=== PATIENT | male | born 1955 | race Caucasian/White ===

== ENCOUNTER 2018-05-14 13:59 | Inpatient (IN) ==
[2018-05-14] MEDS ORDERED: Naloxone Inj 0.4 MG/ML Vial ONE (14:09)
[2018-05-14] MEDS ORDERED: Naloxone Inj 2 MG/2 ML Vial IV.PUSH ONE (14:13)
[2018-05-14] MEDS ORDERED: Sod Chloride 0.9% Inj 1,000 ML IV.CONT SCH (14:15)
--- NOTE | 2018-05-14 15:00 | XR ---
EXAM DATE: 05/14/2018 2:52 PM EDT AGE/SEX: 89 years / Male INDICATIONS: Short of breath. Post code. CLINICAL DATA: This is the patient's initial encounter. Patient reports that signs and symptoms have been present for 1 day and indicates a pain score of Nonresponsive. MEDICAL/SURGICAL HISTORY: Cardiovascular disease. Pacemaker. COMPARISON: No prior exams available for comparison. FINDINGS: A single AP view of the chest demonstrates the lungs to be symmetrically aerated without evidence of mass, infiltrate or effusion. Dual lead pacemaker is identified. Heart size is normal. Large amount o f air identified within the stomach. Osseous structures are intact. CONCLUSION: No evidence of parenchymal lung abnormality. Air within the stomach may be secondary to resuscitation . Electronically signed by: Nafisa Vences MD 05/14/2018 2:58 PM EDT
[2018-05-14] MEDS ORDERED: Propofol 1000 mg/100 ml Inj 1,000 MG/100 ML BOTTLE IV.CONT PRN (15:01)
[2018-05-14] MEDS ORDERED: Etomidate Inj 40 MG/20 ML Vial IV.PUSH ONE (15:01)
[2018-05-14] MEDS ORDERED: Succinylcholine Inj 100 MG/5 ML Syringe IV.PUSH ONE (15:01)
[2018-05-14] MEDS ORDERED: Succinylcholine Inj 200 MG/10 ML Vial ONE (15:07)
[2018-05-14] MEDS ORDERED: fentaNYL 10 mcg/mL Premix Drip 2,500 MCG/250 ML BAG IV.SIG PRN (15:24)
--- NOTE | 2018-05-14 15:43 | ED ---
HPI General Chief Complaint: Overdose Stated Complaint: Medical Time Seen by Provider: 05/14/18 14:12 Source: patient and EMS Mode of arrival: EMS Limitations: altered mental status History of Present Illness HPI Narrative: 58-year-old male was brought by EMS for altered mental status. Patient was found unresponsive in a parking lot local [employer] store. Chest compression started by bystander. EMS was called. Patient was given Narcan with partial reversal of the altered mental status. Patient with given nonrebreathing mask. Patient was transported to the ED for evaluation. Patient was able to tell us he was snorting Xanax. Patient however with severe altered mental status and unable to provide much more information. Patient has repeating episodes of vomiting at the scene and upon arrival. Unable to obtain past history, medication, allergy. MD complaint: accidental overdose Onset (ago): minute(s) Intent: unwilling to say How Overdose Was Discovered: other Context: Accidental Overdose: uncertain what happened Treatments Prior to Arrival: oxygen, narcan and IV fluids Related Data Allergies Allergy/AdvReac Type Severity Reaction Status Date / Time No Allergy Information Allergy Verified 05/14/18 14:13 Available Review of Systems ROS: all other systems reviewed are negative [facility] Medical History Medical History Medical history unknown (Acute) Surgical history unknown (Acute) Social History Social History Substance History: Unable to Obtain Smoking Status: Unknown if ever smoked How Often Do You Have a Drink Containing Alcohol: Unable to Obtain Recent Travel in [facility] within the Last 8 Weeks: No Recent Out of Country Travel within the Last 8 Weeks: No Immunization History Tetanus Immunization: Unable to Assess Exam Narrative Exam Narrative: GENERAL: Well-nourished, well-developed patient. SKIN: Focused skin assessment warm/dry. HEAD: Normocephalic. EYES: No scleral icterus. No injection or drainage. Pupils are pinpoint. NECK: Supple, trachea midline. No JVD or lymphadenopathy. CARDIOVASCULAR: Regular rate and rhythm without murmurs, gallops, or rubs. RESPIRATORY: Breath sounds equal bilaterally. No accessory muscle use. GASTROINTESTINAL: Abdomen soft, non-tender, nondistended. MUSCULOSKELETAL: No cyanosis, or edema. BACK: Nontender without obvious deformity. No CVA tenderness. Neurologic exam: Patient with severe lethargy. Patient answer questions for short period of time and became nonresponsive again. Patient moves all extremity well. No obvious focal neurological deficit. Procedures Intubation Time Out Performed: Yes Sedative: etomidate Mg Given: 20 Paralytic: succinylcholine Mg Given: 100 Laryngoscope: fiber optic video scope Assist Device Used: fiber optic device ET Tube Size: 7.5 ET Tube Uncuffed: Yes Tube Secured Depth (cm): 23 Tube Secured Location: lips Tube Placement Confirmation: visualized tube passing through cords, equal breath sounds bilaterally, no breath sounds over epigastrium and confirmation by capnometry Patient Tolerated Procedure: well Intubation Complications: none Course Initial Documented Vital Signs Temperature 97.8 F 05/14/18 14:12 Pulse Rate 61 05/14/18 14:12 Respiratory Rate 21 05/14/18 14:12 Blood Pressure 155/85 H 05/14/18 14:12 Pulse Oximetry 91 L 05/14/18 14:12 Last Documented Vital Signs Temperature 97.8 F 05/14/18 14:12 Pulse Rate 79 05/14/18 15:18 Respiratory Rate 21 05/14/18 15:18 Blood Pressure 118/81 05/14/18 15:18 Pulse Oximetry 99 05/14/18 15:18 Critical Care Time Critical Care Time: Yes Total Critical Care Time: 60 Attestation: Aggregate critical care time was 60 minutes. Time to perform other separately billable procedures was not included in the critical care time. My time did not include minutes spent treating any other patients simultaneously or on activities that did not directly contribute to the patient's treatment. The services I provided to this patient were to treat and/or prevent clinically significant deterioration that could result in: I provided critical care services requiring my management, as noted below: Chart data review, documentation time, medication orders and management, vital sign assessments/reviewing monitor data, ordering and reviewing lab tests, ordering and interpreting/reviewing x-rays and diagnostic studies, care of the patient and discussion of the patient with the admitting physicians. Medical Decision Making MDM Narrative Medical decision making narrative: 58-year-old male was found unresponsive in a parking lot at [facility]. Patient was brought in by EMS. Patient was given Narcan at the scene and again in the ED with partial relief of the lethargy. Patient admitted to snorting Xanax. Normal saline solution 1 25 cc an hour. Patient was given Narcan 0.8 mg IV after EMS gave patient 1.2 mg IV Narcan. Patient still severe lethargy with recurrent vomiting. Patient was intubated for airway protection and respiratory failure. Medical Screen Exam Complete: Yes Emergency Medical Condition: Yes Differential Diagnosis Differential Diagnosis: Differential diagnosis including drug overdose, electrolyte imbalance, dehydration, sepsis, TIA, CVA. Lab Data Lab results reviewed: Yes I reviewed the patient's lab results. Result diagrams: 05/14/18 14:40 05/14/18 14:40 Lab Results 05/14/18 05/14/18 05/14/18 Range/Units 14:40 14:40 14:40 WBC 13.0 H (4.0-11.0) th/mm3 RBC 5.09 (4.50-5.90) mil/mm3 Hgb 15.7 (13.0-17.0) gm/dL Hct 47.6 (39.0-51.0) % MCV 93.4 (80.0-100.0) fL MCH 30.7 (27.0-34.0) pg MCHC 32.9 (32.0-36.0) % RDW 13.6 (11.6-17.2) % Plt Count 252 (150-450) th/mm3 MPV 8.4 (7.0-11.0) fL Neut % (Auto) 58.4 (16.0-70.0) % Lymph % (Auto) 32.0 (9.0-44.0) % [place] % (Auto) 7.3 (0.0-8.0) % Eos % (Auto) 1.8 (0.0-4.0) % Baso % (Auto) 0.5 (0.0-2.0) % Neut # (Auto) 7.6 (1.8-7.7) th/mm3 Lymph # (Auto) 4.2 (1.0-4.8) th/mm3 [place] # (Auto) 1.0 H (0.0-0.9) th/mm3 Eos # (Auto) 0.2 (0.0-0.4) th/mm3 Baso # (Auto) 0.1 (0.0-0.2) th/mm3 WBC Differential . Differential Comment Auto diff final PT 12.0 H (9.8-11.6) sec INR 1.2 Ratio APTT 25.9 (24.3-30.1) sec Sodium 139 (136-145) meq/L Potassium 3.5 (3.5-5.1) meq/L Chloride 103 (98-107) meq/L Carbon Dioxide 21.0 (21.0-32.0) meq/L Anion Gap 15 (5-15) meq/L BUN 37 H (7-18) mg/dL Creatinine 1.61 H (0.60-1.30) mg/dL Estimated GFR 37 L (>89) mL/min Random Glucose 182 H (74-106) mg/dL Calcium 8.5 (8.5-10.1) mg/dL Total Bilirubin 0.5 (0.2-1.0) mg/dL AST 37 (15-37) U/L ALT 46 (12-78) U/L Alkaline Phosphatase 88 (45-117) U/L Total Creatine Kinase (39-308) U/L Troponin I Less than 0.02 L (0.02-0.05) ng/mL Total Protein 8.0 (6.4-8.2) g/dL Albumin 3.9 (3.4-5.0) g/dL Salicylates (2.8-20.0) mg/dL Urine Opiates Screen (Neg) Acetaminophen Less than 2.0 L (10.0-30.0) mcg/mL Ur Barbiturates Screen (Neg) Ur Amphetamines Screen (Neg) U Benzodiazepines Scrn (Neg) Urine Cocaine Screen (Neg) U Cannabinoids Screen (Neg) Serum Alcohol Less than 3 (0-5) mg/dL 05/14/18 05/14/18 05/14/18 Range/Units 14:40 14:40 15:34 WBC (4.0-11.0) th/mm3 RBC (4.50-5.90) mil/mm3 Hgb (13.0-17.0) gm/dL Hct (39.0-51.0) % MCV (80.0-100.0) fL MCH (27.0-34.0) pg MCHC (32.0-36.0) % RDW (11.6-17.2) % Plt Count (150-450) th/mm3 MPV (7.0-11.0) fL Neut % (Auto) (16.0-70.0) % Lymph % (Auto) (9.0-44.0) % Denali % (Auto) (0.0-8.0) % Eos % (Auto) (0.0-4.0) % Baso % (Auto) (0.0-2.0) % Neut # (Auto) (1.8-7.7) th/mm3 Lymph # (Auto) (1.0-4.8) th/mm3 Denali # (Auto) (0.0-0.9) th/mm3 Eos # (Auto) (0.0-0.4) th/mm3 Baso # (Auto) (0.0-0.2) th/mm3 WBC Differential Differential Comment PT (9.8-11.6) sec INR Ratio APTT (24.3-30.1) sec Sodium (136-145) meq/L Potassium (3.5-5.1) meq/L Chloride (98-107) meq/L Carbon Dioxide (21.0-32.0) meq/L Anion Gap (5-15) meq/L BUN (7-18) mg/dL Creatinine (0.60-1.30) mg/dL Estimated GFR (>89) mL/min Random Glucose (74-106) mg/dL Calcium (8.5-10.1) mg/dL Total Bilirubin (0.2-1.0) mg/dL AST (15-37) U/L ALT (12-78) U/L Alkaline Phosphatase (45-117) U/L Total Creatine Kinase 138 (39-308) U/L Troponin I (0.02-0.05) ng/mL Total Protein (6.4-8.2) g/dL Albumin (3.4-5.0) g/dL Salicylates Less than 1.7 L (2.8-20.0) mg/dL Urine Opiates Screen Pos H (Neg) Acetaminophen (10.0-30.0) mcg/mL Ur Barbiturates Screen Neg (Neg) Ur Amphetamines Screen Pos H (Neg) U Benzodiazepines Scrn Pos H (Neg) Urine Cocaine Screen Neg (Neg) U Cannabinoids Screen Neg (Neg) Serum Alcohol (0-5) mg/dL Imaging Data Radiologist's impression: Chest X-Ray 05/14/18 14:13 CONCLUSION: No evidence of parenchymal lung abnormality. Air within the stomach may be secondary to resuscitation. Chest X-Ray 05/14/18 15:08 CONCLUSION: Interval intubation and line placement. The proximal port of the nasogastric tube is above the level of the gastroesophageal junction. The widening of the mediastinum and cephalization of pulmonary vasculature may be secondary to volume overload. Recommend upright PA lateral views when clinically able. If concern for vascular injury recommend further evaluation with contrast-enhanced CT. Discharge Plan Discharge Disposition Patient Disposition: 30 Still Patient Discharge Details Diagnosis: Respiratory failure, Drug overdose, Renal insufficiency Physicians Team ED Provider: Justice Chavez Primary Care Provider: UNKNOWN, Discharge Interventions Interventions: Vital Signs Last Done: 05/14/18 16:48 Status ED Status: With Doctor
--- NOTE | 2018-05-14 15:48 | XR ---
EXAM DATE: 05/14/2018 3:34 PM EDT AGE/SEX: 89 years / Male INDICATIONS: S/P ET Tube Placement. CLINICAL DATA: This is the patient's initial encounter. Patient reports that signs and symptoms have been present for 1 day and indicates a pain score of Nonresponsive. MEDICAL/SURGICAL HISTORY: Non-responsive. Non-responsive. COMPARISON: [facility], CHEST 1V SINGLE AP, 05/14/2018. . FINDINGS: AP portable view of the thorax demonstrates interval placement of an endotracheal tube which is seen at the tip of the clavicles, gastric tubing extending beyond the imaged portion of the field with pro ximal port above the level of the gastroesophageal junction. Dual lead cardiac pacer. Moderate cardiomegaly with widening of the mediastinum, diffuse cephalizatio n of pulmonary vasculature. Lungs are clear. CONCLUSION: Interval intubation and line placement. The proximal port of the nasogastric tube is above the level of the gastroesophageal junction. The widening of the mediastinum and cephalization of pulmonary vasculature may be secondary to volume overload. Recommend upright PA lateral views when clinically able. If concern for vascular injury re commend further evaluation with contrast-enhanced CT. Electronically signed by: Nafisa Vences MD 05/14/2018 3:47 PM EDT
[2018-05-14 16:01] LABS: Baso # (Auto) 0.1 th/mm3 (0.0-0.2); Baso % (Auto) 0.5 % (0.0-2.0); Eos # (Auto) 0.2 th/mm3 (0.0-0.4); Eos % (Auto) 1.8 % (0.0-4.0); Hematocrit 47.6 % (39.0-51.0); Hemoglobin 15.7 gm/dL (13.0-17.0); Lymph # (Auto) 4.2 th/mm3 (1.0-4.8); Mean Corpuscular HGB Conc 32.9 % (32.0-36.0); Mean Corpuscular Hemoglobin 30.7 pg (27.0-34.0); Mean Corpuscular Volume 93.4 fL (80.0-100.0); Mean Platelet Volume 8.4 fL (7.0-11.0); Mono % (Auto) 7.3 % (0.0-8.0); Neut # (Auto) 7.6 th/mm3 (1.8-7.7); Neut % (Auto) 58.4 % (16.0-70.0); Platelet Count 252 th/mm3 (150-450); Red Blood Count 5.09 mil/mm3 (4.50-5.90); Red Cell Distribution Width 13.6 % (11.6-17.2)
[2018-05-14 16:05] LABS: Activated Partial Thrombo Time 25.9 sec (24.3-30.1); INR 1.2 Ratio
[2018-05-14 16:16] LABS: Amphetamine Screen,Urine Pos (Neg); Barbiturate Screen,Urine Neg (Neg); Cannabinoid Screen,Urine Neg (Neg); Cocaine Screen,Urine Neg (Neg)
[2018-05-14 16:26] LABS: Albumin 3.9 g/dL (3.4-5.0); Anion Gap 15 meq/L (5-15); Aspartate Aminotransferase 37 U/L (15-37); Blood Urea Nitrogen 37 mg/dL (7-18); Calcium 8.5 mg/dL (8.5-10.1); Chloride 103 meq/L (98-107); Glomerular Filtration Rate 37 mL/min (>89); Glucose,Random 182 mg/dL (74-106); Potassium 3.5 meq/L (3.5-5.1); Sodium 139 meq/L (136-145)
[2018-05-14 16:30] LABS: Opiate Screen,Urine Pos (Neg)
[2018-05-14 16:31] LABS: Alanine Aminotransferase 46 U/L (12-78); Alkaline Phosphatase 88 U/L (45-117)
--- NOTE | 2018-05-14 18:10 | P.HPCC ---
History of Present Illness Service: Critical care medicine Primary Care Physician: UNKNOWN Chief Complaint: Altered mental status History of Present Illness: HPI Narrative: 58-year-old male was brought by EMS for altered mental status. Patient was found unresponsive in a parking lot local [employer] store. Chest compression started by bystander. EMS was called. Patient was given Narcan with partial reversal of the altered mental status. Patient with given nonrebreathing mask. Patient was transported to the ED for evaluation. Patient was able to tell EMS/ER he was snorting Xanax. Patient however with severe altered mental status and unable to provide much more information. Patient had repeating episodes of vomiting at the scene and upon EMS arrival. Unable to obtain past history, medication, allergy. How Overdose Was Discovered: other Context: Accidental Overdose: uncertain what happened Treatments Prior to Arrival: oxygen, narcan and IV fluids. Patient was intubated and placed on mechanical ventilation following arrival in the ER and started on a propofol drip for sedation. He was accepted for admission by critical care medicine service. I evaluated the patient in the ER. At that time he was sedated with propofol, orally intubated on mechanical ventilation. Head CT ordered and is pending at this time. History was obtained by reviewing records and discussion with Dr. Chavez. Inpatient Certification: I certify that the inpatient services were ordered in accordance with Medicare regulations governing the order. This includes certification that hospital inpatient services are reasonable and necessary and in the case of services not specified as inpatient-only under 42 CFR 419.22(n), that they are appropriately provided as inpatient services in accordance to with the 2-midnight benchmark under 43 CFR 412.3(e) Estimated Total Length of Stay (Days): 3 Plans for Post Hospital Care: Not yet determined Review of Systems unobtainable due to endotracheal tube PMFSH - History History Provided By: Muffle Worker / EMT - Medical / Surgical Hx Neg / Unobtainable Medical Problems Denied: Unable to Obtain - Medical History Medical History: Medical History (Last Reviewed 05/14/18 @ 15:39 by Justice Chavez MD) Medical history unknown Surgical history unknown - Tobacco History Smoking Status: Unknown if ever smoked - Alcohol History How Often Do You Have a Drink Containing Alcohol: Unable to Obtain - Substance Use History Substance History: Unable to Obtain - Travel History Recent Travel in the [place] Within the Last 8 Weeks: No Recent Travel Out of the Country Within the Last 8 Weeks: No - Immunization History Tetanus Immunization: Unable to Assess Medications and Allergies Active Medications: Active Medications Acetaminophen (Tylenol) 650 mg PO Q6H PRN PRN Reason: PAIN 1-10 AND/OR FEVER >101F Albuterol (Duoneb Neb (Ele)) 1 ampul NEB Q6HR NEB [facility] Chlorhexidine Gluconate (Chlorhexidine 2% Cloth) 3 pack TOPICAL DAILY@0400 ELE Stop: 05/20/18 03:59 Chlorhexidine Gluconate (Chlorhexidine 2% Cloth) 3 pack TOPICAL DAILY@0400 PRN PRN Reason: Extra cloth needed Stop: 05/20/18 03:59 Famotidine (Pepcid Pf Inj) 20 mg IV.PUSH Q12HR [facility] Sodium Chloride (Ns Inj) 1,000 mls @ 125 mls/hr IV.CONT .Q8H ELE Last Admin: 05/14/18 15:16 Dose: 125 mls/hr Propofol (Diprivan 1000 Mg/100 Ml Inj) 1,000 mg in 100 mls @ 4.082 mls/hr IV.CONT TITRATE PRN; Protocol PRN Reason: Per Protocol Last Admin: 05/14/18 15:31 Dose: 5 mcg/kg/min, 4.08 mls/hr Fentanyl (Fentanyl 10 Mcg/Ml Premix Drip) 2,500 mcg in 250 mls @ 5 mls/hr IV.SIG TITRATE PRN; Protocol PRN Reason: Per Protocol Sodium Chloride (Ns Inj) 1,000 mls @ 75 mls/hr IV.CONT .[id number] [facility] Allergies Allergy/AdvReac Type Severity Reaction Status Date / Time No Allergy Information Allergy Verified 05/14/18 14:13 Available Results - Labs CBC & Chem 7: 05/14/18 14:40 05/14/18 14:40 Labs: Short CBC 05/14/18 Range/Units 14:40 WBC 13.0 H (4.0-11.0) th/mm3 Hgb 15.7 (13.0-17.0) gm/dL Hct 47.6 (39.0-51.0) % Plt Count 252 (150-450) th/mm3 BMP 05/14/18 14:40 Sodium 139 Potassium 3.5 Chloride 103 Carbon Dioxide 21.0 BUN 37 H Creatinine 1.61 H Calcium 8.5 Cardiac Enzymes 05/14/18 05/14/18 Range/Units 14:40 14:40 Total Creatine Kinase 138 (39-308) U/L Troponin I Less than 0.02 L (0.02-0.05) ng/mL Liver Function 05/14/18 Range/Units 14:40 Total Bilirubin 0.5 (0.2-1.0) mg/dL AST 37 (15-37) U/L ALT 46 (12-78) U/L Alkaline Phosphatase 88 (45-117) U/L Albumin 3.9 (3.4-5.0) g/dL - Imaging Impressions Chest X-Ray 05/14/18 14:13 CONCLUSION: No evidence of parenchymal lung abnormality. Air within the stomach may be secondary to resuscitation. Chest X-Ray 05/14/18 15:08 CONCLUSION: Interval intubation and line placement. The proximal port of the nasogastric tube is above the level of the gastroesophageal junction. The widening of the mediastinum and cephalization of pulmonary vasculature may be secondary to volume overload. Recommend upright PA lateral views when clinically able. If concern for vascular injury recommend further evaluation with contrast-enhanced CT. Exam Vital signs: Vital Signs 05/14/18 14:12 05/14/18 14:13 05/14/18 14:15 Temperature 97.8 F Pulse Rate 61 94 H Respiratory Rate 21 26 H Blood Pressure 155/85 H 155/85 H Pulse Oximetry 91 L 80 L 92 L 05/14/18 15:02 05/14/18 15:15 05/14/18 15:18 Temperature Pulse Rate 74 79 Respiratory Rate 26 H 21 Blood Pressure 154/99 H 118/81 Pulse Oximetry 100 99 05/14/18 16:18 05/14/18 16:48 Temperature Pulse Rate 71 70 Respiratory Rate 14 14 Blood Pressure 146/98 H 148/95 H Pulse Oximetry 98 100 Intake & Output 05/13/18 05/14/18 05/14/18 18:59 06:59 18:59 Weight 136.078 kg Narrative: HEENT/ Neuro: Sedated, orally intubated, Pallor present, no icterus, tongue/ mucosa moist Neck: No JVD Chest/Pulm: on mech vent, good air entry bilaterally, no wheezing or crackles CVS: S1-S2 regular, no murmur GI/abdomen: soft, nontender, bowel sounds sluggish Extremities: warm bilaterally, no edema Caprini VTE Risk Assessment Caprini VTE Risk Assessment: Moderate/High Risk (score >= 2) Caprini Risk Assessment Model: Point Value = 1 Point Value = 2 Point Value = 3 Point Value = 5 Age 41-60 Minor surgery BMI > 25 kg/m2 Swollen legs Varicose veins or History of unexplained or recurrent spontaneous Oral contraceptives or hormone replacement Sepsis (< 1 month) Serious lung disease, including pneumonia (< 1 month) Abnormal pulmonary function Acute myocardial infarction Congestive heart failure (< 1 month) History of inflammatory bowel disease Medical patient at bed rest Age 61-74 Arthroscopic surgery Major open surgery (> 45 min) Laparoscopic surgery (> 45 min) Malignancy Confined to bed (> 72 hours) Immobilizing plaster cast Central venous access Age >= 75 History of VTE Family history of VTE Factor V Leiden Prothrombin [id number] Lupus anticoagulant Anticardiolipin antibodies Elevated serum homocysteine Heparin-induced thrombocytopenia Other congenital or acquired thrombophilia Stroke (< 1 month) Elective arthroplasty Hip, pelvis, or leg fracture Acute spinal cord injury (< 1 month) Prophylaxis Regimen: Total Risk Factor Score Risk Level Prophylaxis Regimen 0-1 Low Early ambulation 2 Moderate Order ONE of the following: *Sequential Compression Device (SCD) *Heparin 5000 units SQ BID 3-4 Higher Order ONE of the following medications: *Heparin 5000 units SQ TID *Enoxaparin/Lovenox 40 mg SQ daily (WT < 150 kg, CrCl > 30 mL/min) *Enoxaparin/Lovenox 30 mg SQ daily (WT < 150 kg, CrCl > 10-29 mL/min) *Enoxaparin/Lovenox 30 mg SQ BID (WT < 150 kg, CrCl > 30 mL/min) AND/OR *Sequential Compression Device (SCD) 5 or more Highest Order ONE of the following medications: *Heparin 5000 units SQ TID (Preferred with Epidurals) *Enoxaparin/Lovenox 40 mg SQ daily (WT < 150 kg, CrCl > 30 mL/min) *Enoxaparin/Lovenox 30 mg SQ daily (WT < 150 kg, CrCl > 10-29 mL/min) *Enoxaparin/Lovenox 30 mg SQ BID (WT < 150 kg, CrCl > 30 mL/min) AND *Sequential Compression Device (SCD) Assessment and Plan - Assessment and Plan Plan: Elderly male with: Accidental overdose Benzodiazepine/opiate/amphetamine positive Acute respiratory failure on mechanical ventilation Encephalopathy Plan: Neuro: Sedation with propofol, neurochecks. Follow-up head CT. Await improvement in neurologic status. Daily sedation vacation. Cardiovascular: IV hydration, watch for hypotension. Serial troponins. Patient has a permanent pacemaker in place. Pulmonary: Continue mechanical ventilation, vent bundle, bronchodilators as needed. Await improvement in neurologic status prior to CPAP trials to decide extubation. May have aspirated at scene. Will send sputum for Gram stain and cultures. GI/liver: Keep n.p.o. for now. OG tube to low intermittent wall suction. If unable to extubate tomorrow we will initiate tube feeds. Renal/: IV hydration, strict intake output, monitor and replete electrolytes, follow BUN/creatinine. ID: Possible aspiration. Hold off on antibiotics at this time. Sputum sent for Gram stain and cultures. Will watch for fevers or leukocytosis and if they occur will consider antibiotics. Heme: Follow CBC and coags. Endocrine: SSI for glycemic control if needed. Prophylaxis: Pepcid/SCDs. If head CT negative for bleed will initiate subcutaneous Lovenox. We will attempt to obtain further history from family when they arrive as well as clarify home meds. Condition critical Time spent on critical care excluding procedures 45 minutes
--- NOTE | 2018-05-14 18:34 | CT ---
EXAM DATE: 05/14/2018 6:30 PM EDT AGE/SEX: 89 years / Male INDICATIONS: Altered mental status. CLINICAL DATA: This is the patient's initial encounter. Patient reports that signs and symptoms have been present for 1 day and indicates a pain score of Nonresponsive. MEDICAL/SURGICAL HISTORY: Non-responsive. Non-responsive. RADIATION DOSE: 43.56 CTDI (mGy) COMPARISON: No prior exams available for comparison. TECHNIQUE: CT of the head without contrast. Using automated exposure control and adjustment of the mA and/or kV according to patient size, radiation dose was kept as low as reasonably achievable to ob tain optimal diagnostic quality images. DICOM format image data is available electronically for revi ew and comparison. FINDINGS: There is mild motion artifact degrading the images. Cerebrum: The ventricles are normal for age. No evidence of midline shift, mass lesion, hemorrhage or acute infarction. No extraaxial fluid collections are seen. Posterior Fossa: The cerebellum and brainstem are intact. The 4th ventricle is midline. The cerebe llopontine angle is unremarkable. Extracranial: The visualized portion of the orbits is intact. Skull: The calvaria is intact. No evidence of skull fracture. CONCLUSION: 1. Negative noncontrast head CT. . Electronically signed by: Ravin Cooper MD 05/14/2018 6:32 PM EDT
[2018-05-14] MEDS: Sod Chloride 0.9% Inj 1,000 ML IV.CONT SCH (18:39)
[2018-05-14 18:56] LABS: ABG Base Excess -3.6 mmol/L (-2-2); ABG PCO2 50 mmHg (38-42); ABG PO2 71 mmHg (61-120)
[2018-05-14] MEDS: Famotidine PF Inj 20 MG/2 ML Vial IV.PUSH SCH (22:50)
[2018-05-14 22:56] LABS: ABG Base Excess -4.2 mmol/L (-2-2); ABG PCO2 48 mmHg (38-42); ABG PO2 81 mmHg (61-120)
[2018-05-14 23:25] LABS: Troponin I 0.02 ng/mL (0.02-0.05)
[2018-05-14 23:30] LABS: Calcium 8.6 mg/dL (8.5-10.1); Magnesium 2.4 mg/dL (1.5-2.5); Phosphorus 4.3 mg/dL (2.5-4.9); Potassium 4.2 meq/L (3.5-5.1)
[2018-05-15] MEDS ORDERED: Chlorhexidine Gluconate 2% 1 Pack (2 Cloths) TOPICAL PRN (04:00)
[2018-05-15 05:35] LABS: Alanine Aminotransferase 39 U/L (12-78); Albumin 3.5 g/dL (3.4-5.0); Anion Gap 9 meq/L (5-15); Aspartate Aminotransferase 21 U/L (15-37); Blood Urea Nitrogen 33 mg/dL (7-18); Calcium 8.5 mg/dL (8.5-10.1); Carbon Dioxide 27.5 meq/L (21.0-32.0); Chloride 104 meq/L (98-107); Glomerular Filtration Rate 66 mL/min (>89); Glucose,Random 83 mg/dL (74-106); Sodium 140 meq/L (136-145)
[2018-05-15 05:37] LABS: Alkaline Phosphatase 80 U/L (45-117); Total Protein 7.5 g/dL (6.4-8.2)
[2018-05-15] MEDS: Chlorhexidine Gluconate 2% 1 Pack (2 Cloths) TOPICAL SCH (06:04)
[2018-05-15] MEDS: Sod Chloride 0.9% Inj 1,000 ML IV.CONT SCH (07:59)
[2018-05-15] MEDS: Famotidine PF Inj 20 MG/2 ML Vial IV.PUSH SCH ×2 (08:26→20:48)
[2018-05-15] MEDS: Acetaminophen 325 MG Tablet PO PRN ×3 (10:32→23:50)
--- NOTE | 2018-05-15 10:57 | P.PNCC ---
Subjective Subjective Remarks/Hospital Course: 05/14: HPI Narrative: 58-year-old male was brought by EMS for altered mental status. Patient was found unresponsive in a parking lot local [employer] store. Chest compression started by bystander. EMS was called. Patient was given Narcan with partial reversal of the altered mental status. Patient with given nonrebreathing mask. Patient was transported to the ED for evaluation. Patient was able to tell EMS/ER he was snorting Xanax. Patient however with severe altered mental status and unable to provide much more information. Patient had repeating episodes of vomiting at the scene and upon EMS arrival. Unable to obtain past history, medication, allergy. How Overdose Was Discovered: other Context: Accidental Overdose: uncertain what happened Treatments Prior to Arrival: oxygen, narcan and IV fluids. Patient was intubated and placed on mechanical ventilation following arrival in the ER and started on a propofol drip for sedation. He was accepted for admission by critical care medicine service. I evaluated the patient in the ER. At that time he was sedated with propofol, orally intubated on mechanical ventilation. Head CT ordered and is pending at this time. History was obtained by reviewing records and discussion with Dr. Chavez. 05/15: Arousable off sedation, tolerated CPAP trial. Extubated following CPAP trial Objective Vital Signs / I&O: Vital Signs 05/14/18 14:12 05/14/18 14:13 05/14/18 14:15 Temperature 97.8 F Pulse Rate 61 94 H Respiratory Rate 21 26 H Blood Pressure 155/85 H 155/85 H Pulse Oximetry 91 L 80 L 92 L 05/14/18 15:02 05/14/18 15:14 05/14/18 15:15 Temperature Pulse Rate 74 Respiratory Rate 26 H 15 Blood Pressure 154/99 H Pulse Oximetry 95 100 05/14/18 15:18 05/14/18 16:18 05/14/18 16:48 Temperature Pulse Rate 79 71 70 Respiratory Rate 21 14 14 Blood Pressure 118/81 146/98 H 148/95 H Pulse Oximetry 99 98 100 05/14/18 18:22 05/14/18 18:41 05/14/18 19:14 Temperature 98.8 F Pulse Rate 71 68 Respiratory Rate 14 14 Blood Pressure 100/71 106/72 Pulse Oximetry 93 L 96 97 05/14/18 20:45 05/14/18 21:00 05/14/18 23:00 Temperature 94.2 F L 97.3 F L Pulse Rate 69 73 Respiratory Rate 19 16 18 Blood Pressure 119/79 136/73 Pulse Oximetry 96 93 L 98 05/14/18 23:19 05/15/18 00:00 05/15/18 01:00 Temperature 99.0 F 99.5 F Pulse Rate 78 77 Respiratory Rate 16 16 16 Blood Pressure 122/72 115/67 Pulse Oximetry 97 97 98 05/15/18 02:00 05/15/18 03:50 05/15/18 04:00 Temperature 99.9 F H 100.0 F H Pulse Rate 75 81 78 Respiratory Rate 16 18 16 Blood Pressure 111/67 115/67 Pulse Oximetry 99 99 98 05/15/18 05:00 05/15/18 06:00 05/15/18 08:00 Temperature 100 F H 100 F H Pulse Rate 80 79 100 H Respiratory Rate 16 16 16 Blood Pressure 112/64 109/58 L 103/61 Pulse Oximetry 98 99 96 05/15/18 08:29 05/15/18 08:35 05/15/18 08:38 Temperature Pulse Rate 79 Respiratory Rate 16 16 Blood Pressure Pulse Oximetry 96 95 Intake & Output 05/14/18 05/15/18 05/15/18 18:59 06:59 18:59 Intake Total 475 / 475 1000 / 1000 Output Total 850 / 850 Balance 475 / 475 -850 / -850 1000 / 1000 Weight 136.078 kg 117.8 kg Intake: IV 475 / 475 1000 / 1000 NS Inj 1,000 ML @ 75 mls/hr IV. 475 / 475 1000 / 1000 CONT .[id number] [facility] Rx#:[id number] Output: Urine Amount (Catheter) 850 / 850 Indwelling Urethral Catheter 850 / 850 Gastric Drainage 0 / 0 Orogastric Tube 0 / 0 Other: Weight On Admission 116.2 kg Result Diagrams: 05/14/18 14:40 05/15/18 05:00 Objective Remarks: HEENT/Neuro: No pallor or icterus, tongue moist, CON, Awake alert oriented 3 , nonfocal grossly, moving all 4 extremities Neck: No JVD Chest/pulmonary: CTA bilaterally Cardiovascular: S1-S2 regular no gallop or murmur GI/abdomen: Soft, nontender, bowel sounds present Extremities: Warm bilaterally, no edema Assessment and Plan - Assessment and Plan Plan: Elderly male with: Accidental overdose Benzodiazepine/opiate/amphetamine positive Acute respiratory failure on mechanical ventilation Encephalopathy History of permanent pacemaker History of hypertension Plan: Neuro: Sedation held, neuro status improved. Head CT negative. Cardiovascular: KVO IV fluids. Patient has a permanent pacemaker in place. Resume home cardiac meds Pulmonary: Extubated following CPAP trial bronchodilators as needed. May have aspirated at scene. Sent sputum for Gram stain and cultures. GI/liver: Advance p.o. diet as tolerated. Renal/: Resume home dose of Lasix, strict intake output, monitor and replete electrolytes, follow BUN/creatinine. ID: Possible aspiration. Hold off on antibiotics at this time. Sputum sent for Gram stain and cultures. Will watch for fevers or leukocytosis and if they occur will consider antibiotics. Heme: Follow CBC and coags. Endocrine: SSI for glycemic control if needed. Prophylaxis: Pepcid/SCDs. Subcutaneous Lovenox for DVT prophylaxis Off note when his pharmacy was called to clarify his home meds the ICU nurse was informed that he had been found snorting Xanax in the bathroom previously. Consult and transfer to hospitalist service for further medical management
[2018-05-15] MEDS: Furosemide 40 MG Tablet PO SCH (12:00)
[2018-05-15] MEDS: Divalproex 250 MG DR Tablet PO SCH ×2 (12:00→20:47)
[2018-05-15] MEDS: Amiodarone 200 MG Tablet PO SCH (12:00)
[2018-05-15] MEDS: Citalopram 20 MG Tablet PO SCH (12:00)
[2018-05-15] MEDS: Gabapentin 100 MG Capsule PO SCH (12:00)
[2018-05-15] MEDS ORDERED: Temazepam 15 MG Capsule PO SCH (21:00)
[2018-05-16] MEDS ORDERED: LORazepam 1 MG Tablet PO ONE (03:58)
--- NOTE | 2018-05-16 04:00 | P.PNADD ---
Addendum to Inpatient Note Reason for Addendum: Additional Documentation Additional information: Patient demanding percocet from nursing staff. Likely experiencing agitation from withdrawal. Discussed with Dr. Fair, electronics warfare technician. Okay to give Ativan 1 mg p.o. for withdrawal symptoms- no IV narcotics - and nurse must stand and watch patient swallow medication. Discussed with KIM Allen - she will watch patient take medication.
[2018-05-16] MEDS: Chlorhexidine Gluconate 2% 1 Pack (2 Cloths) TOPICAL SCH (04:17)
[2018-05-16] MEDS: Acetaminophen 325 MG Tablet PO PRN (08:35)
[2018-05-16] MEDS: Divalproex 250 MG DR Tablet PO SCH (08:38)
[2018-05-16] MEDS: Gabapentin 100 MG Capsule PO SCH (08:38)
[2018-05-16] MEDS: Amiodarone 200 MG Tablet PO SCH (08:38)
[2018-05-16] MEDS: Furosemide 40 MG Tablet PO SCH (08:39)
[2018-05-16] MEDS: Citalopram 20 MG Tablet PO SCH (08:39)
[2018-05-16] MEDS: Famotidine PF Inj 20 MG/2 ML Vial IV.PUSH SCH (08:44)
[2018-05-16] MEDS ORDERED: hydrALAZINE 50 MG Tablet PO SCH (09:00)
[2018-05-16] MEDS ORDERED: Lisinopril 10 MG Tablet PO SCH (09:00)
[2018-05-16] MEDS ORDERED: Baclofen 10 MG Tablet PO SCH (09:00)
[2018-05-16] MEDS ORDERED: Spironolactone 25 MG Tablet PO SCH (09:00)
[2018-05-16 10:19] LABS: Baso % (Auto) 0.5 % (0.0-2.0); Eos # (Auto) 0.1 th/mm3 (0.0-0.4); Eos % (Auto) 0.9 % (0.0-4.0); Hematocrit 40.3 % (39.0-51.0); Hemoglobin 13.4 gm/dL (13.0-17.0); Lymph # (Auto) 0.9 th/mm3 (1.0-4.8); Lymph % (Auto) 9.8 % (9.0-44.0); Mean Corpuscular HGB Conc 33.2 % (32.0-36.0); Mean Corpuscular Hemoglobin 30.8 pg (27.0-34.0); Mean Corpuscular Volume 92.7 fL (80.0-100.0); Mean Platelet Volume 8.2 fL (7.0-11.0); Mono # (Auto) 0.8 th/mm3 (0.0-0.9); Mono % (Auto) 9.2 % (0.0-8.0); Neut # (Auto) 7.1 th/mm3 (1.8-7.7); Neut % (Auto) 79.6 % (16.0-70.0); Platelet Count 168 th/mm3 (150-450); Red Blood Count 4.35 mil/mm3 (4.50-5.90); Red Cell Distribution Width 13.6 % (11.6-17.2)
[2018-05-16 10:26] LABS: INR 1.1 Ratio; Prothrombin Time 11.2 sec (9.8-11.6)
[2018-05-16 10:42] LABS: Alanine Aminotransferase 25 U/L (12-78); Albumin 3.1 g/dL (3.4-5.0); Alkaline Phosphatase 67 U/L (45-117); Anion Gap 9 meq/L (5-15); Aspartate Aminotransferase 15 U/L (15-37); Blood Urea Nitrogen 17 mg/dL (7-18); Calcium 8.3 mg/dL (8.5-10.1); Carbon Dioxide 23.7 meq/L (21.0-32.0); Chloride 101 meq/L (98-107); Free T4 (Free Thyroxine) 1.46 ng/dL (0.76-1.46); Glomerular Filtration Rate Greater Than 89 mL/min (>89); Glucose,Random 120 mg/dL (74-106); Magnesium 1.8 mg/dL (1.5-2.5); Phosphorus 1.8 mg/dL (2.5-4.9); Potassium 3.5 meq/L (3.5-5.1); Sodium 134 meq/L (136-145)
--- NOTE | 2018-05-16 14:03 | P.PNIM ---
Subjective Interval history: 05/14: HPI Narrative: 58-year-old male was brought by EMS for altered mental status. Patient was found unresponsive in a parking lot local [employer] store. Chest compression started by bystander. EMS was called. Patient was given Narcan with partial reversal of the altered mental status. Patient with given nonrebreathing mask. Patient was transported to the ED for evaluation. Patient was able to tell EMS/ER he was snorting Xanax. Patient however with severe altered mental status and unable to provide much more information. Patient had repeating episodes of vomiting at the scene and upon EMS arrival. Unable to obtain past history, medication, allergy. How Overdose Was Discovered: other Context: Accidental Overdose: uncertain what happened Treatments Prior to Arrival: oxygen, narcan and IV fluids. Patient was intubated and placed on mechanical ventilation following arrival in the ER and started on a propofol drip for sedation. He was accepted for admission by critical care medicine service. I evaluated the patient in the ER. At that time he was sedated with propofol, orally intubated on mechanical ventilation. Head CT ordered and is pending at this time. History was obtained by reviewing records and discussion with Dr. Chavez. 05/15: Arousable off sedation, tolerated CPAP trial. Extubated following CPAP trial 05-16 TRANSFERRED TO OUR SERVICE TODAY COMPLAINS OF PAIN WAS NOTED TO BE SNORTING MEDS PRIOR TO COMING TO THE HOSPITAL ALL THESE MEDS HE BOUGHT ON THE STREET -WERE NOT PRESCRIBED FOR HIM HAS BEEN CLEARED BY ALL AND CAN BE DISCHARGED TO HOME TODAY FOLLOW UP WITH HIS PCP Physical Exam Vital signs: Vital Signs 05/15/18 14:00 05/15/18 16:00 05/15/18 16:59 Temperature 99.3 F Pulse Rate 77 82 82 Respiratory Rate 16 16 Blood Pressure 134/70 Pulse Oximetry 97 05/15/18 17:05 05/15/18 20:00 05/16/18 00:00 Temperature 97.6 F 97.9 F Pulse Rate 76 82 84 Respiratory Rate 18 19 Blood Pressure 116/60 142/84 H Pulse Oximetry 96 96 05/16/18 04:00 05/16/18 08:00 05/16/18 08:13 Temperature 97.9 F 98.4 F Pulse Rate 93 H 82 79 Respiratory Rate 19 20 14 Blood Pressure 141/85 H 139/84 Pulse Oximetry 92 L 93 L 98 05/16/18 12:00 Temperature 97.0 F L Pulse Rate 80 Respiratory Rate 20 Blood Pressure 127/81 Pulse Oximetry 92 L Intake & Output 05/15/18 05/16/18 05/16/18 18:59 06:59 18:59 Intake Total 2350 / 2350 Output Total 900 / 900 850 / 850 200 / 200 Balance 1450 / 1450 -850 / -850 -200 / -200 Weight 115.4 kg 116.1 kg Intake: IV 1150 / 1150 NS Inj 1,000 ML @ 75 mls/hr IV. 1150 / 1150 CONT .[id number] Rx#:[id number] Oral 1200 / 1200 Other 0 / 0 Output: Urine 850 / 850 200 / 200 Urine Amount (Catheter) 900 / 900 Indwelling Urethral Catheter 900 / 900 Other: # Bowel Movements 0 Narrative: GENERAL: Awake alert and oriented 3 talkative and cooperative appears to be in no acute distress SKIN: Warm and dry. HEAD: Atraumatic. Normocephalic. EYES: Pupils equal and round. No scleral icterus. No injection or drainage. EOMI ENT: No nasal bleeding or discharge. Mucous membranes pink and moist. Tongue is midline NECK: Trachea midline. No JVD. Supple CARDIOVASCULAR: Regular rate and rhythm. S1-S2 no S3 or S4 RESPIRATORY: No accessory muscle use. Clear to auscultation. Breath sounds equal bilaterally. GASTROINTESTINAL: Abdomen soft, non-tender, nondistended. Hepatic and splenic margins not palpable. MUSCULOSKELETAL: Extremities without clubbing, cyanosis, or edema. No obvious deformities. NEUROLOGICAL: Awake and alert. No obvious cranial nerve deficits. Motor grossly within normal limits. Five out of 5 muscle strength in the arms and legs. Normal speech. PSYCHIATRIC: Appropriate mood and affect; insight and judgment normal. - Urinary Catheter Management Indwelling Urethral Catheter Cath placed during this visit: yes Reason for continuing: Hourly intake/output Insertion date: 05/14/18 Insertion time: 15:25 Results - Labs CBC & Chem 7: 05/16/18 09:58 05/16/18 09:58 Laboratory Results - last 24 hr 05/16/18 05/16/18 05/16/18 09:58 09:58 09:58 WBC 9.0 RBC 4.35 L Hgb 13.4 D Hct 40.3 MCV 92.7 MCH 30.8 MCHC 33.2 RDW 13.6 Plt Count 168 D MPV 8.2 Neut % (Auto) 79.6 H Lymph % (Auto) 9.8 [place] % (Auto) 9.2 H Eos % (Auto) 0.9 Baso % (Auto) 0.5 Neut # (Auto) 7.1 Lymph # (Auto) 0.9 L [place] # (Auto) 0.8 Eos # (Auto) 0.1 Baso # (Auto) 0.0 WBC Differential . Differential Comment Auto diff final PT 11.2 INR 1.1 Sodium 134 L Potassium 3.5 Chloride 101 Carbon Dioxide 23.7 Anion Gap 9 BUN 17 Creatinine 0.84 Estimated GFR Greater than 89 Random Glucose 120 H Calcium 8.3 L Phosphorus 1.8 L D Magnesium 1.8 D Total Bilirubin 0.5 AST 15 ALT 25 Alkaline Phosphatase 67 Total Protein 7.0 Albumin 3.1 L TSH 1.570 Free T4 1.46 Microbiology 05/15/18 08:50 Sputum - Endotracheal Gram Stain - Final 05/15/18 08:50 Sputum - Endotracheal Sputum Culture - Preliminary gram negative rods - Imaging Chest X-Ray 05/14/18 14:13 CONCLUSION: No evidence of parenchymal lung abnormality. Air within the stomach may be secondary to resuscitation. Chest X-Ray 05/14/18 15:08 CONCLUSION: Interval intubation and line placement. The proximal port of the nasogastric tube is above the level of the gastroesophageal junction. The widening of the mediastinum and cephalization of pulmonary vasculature may be secondary to volume overload. Recommend upright PA lateral views when clinically able. If concern for vascular injury recommend further evaluation with contrast-enhanced CT. Head CT 05/14/18 17:16 CONCLUSION: 1. Negative noncontrast head CT. . - Procedures Intubation and extubation and mechanical ventilation Assessment and Plan - Plan Elderly male with: Accidental overdose Benzodiazepine/opiate/amphetamine positive Acute respiratory failure on mechanical ventilation Encephalopathy History of permanent pacemaker History of hypertension Plan: Neuro: Sedation held, neuro status improved. Head CT negative. Cardiovascular: KVO IV fluids. Patient has a permanent pacemaker in place. Resume home cardiac meds Pulmonary: Extubated following CPAP trial bronchodilators as needed. May have aspirated at scene. Sent sputum for Gram stain and cultures. GI/liver: Advance p.o. diet as tolerated. Renal/: Resume home dose of Lasix, strict intake output, monitor and replete electrolytes, follow BUN/creatinine. ID: Possible aspiration. Hold off on antibiotics at this time. Sputum sent for Gram stain and cultures. Will watch for fevers or leukocytosis and if they occur will consider antibiotics. Heme: Follow CBC and coags. Endocrine: SSI for glycemic control if needed. Prophylaxis: Pepcid/SCDs. Subcutaneous Lovenox for DVT prophylaxis Off note when his pharmacy was called to clarify his home meds the ICU nurse was informed that he had been found snorting Xanax in the bathroom previously. Can be discharged to home today to follow-up with his primary care physician this week Code Status: Full code Discussed Condition With: RN and patient and case management Discharge Planning: Discharge to home today
--- NOTE | 2018-05-16 14:42 | P.DS ---
Date of admission: 05/14/18 17:08 Primary care physician: UNKNOWN Attending physician on discharge: Mikel Sanchez Anticipated date of discharge: 05/16/18 Brief History from admission: HPI Narrative: 58-year-old male was brought by EMS for altered mental status. Patient was found unresponsive in a parking lot local [employer] store. Chest compression started by bystander. EMS was called. Patient was given Narcan with partial reversal of the altered mental status. Patient with given nonrebreathing mask. Patient was transported to the ED for evaluation. Patient was able to tell EMS/ER he was snorting Xanax. Patient however with severe altered mental status and unable to provide much more information. Patient had repeating episodes of vomiting at the scene and upon EMS arrival. Unable to obtain past history, medication, allergy. How Overdose Was Discovered: other Context: Accidental Overdose: uncertain what happened Treatments Prior to Arrival: oxygen, narcan and IV fluids. Patient was intubated and placed on mechanical ventilation following arrival in the ER and started on a propofol drip for sedation. He was accepted for admission by critical care medicine service. I evaluated the patient in the ER. At that time he was sedated with propofol, orally intubated on mechanical ventilation. Head CT ordered and is pending at this time. History was obtained by reviewing records and discussion with Dr. Chavez. Patient update on day of discharge: 05/14: HPI Narrative: 58-year-old male was brought by EMS for altered mental status. Patient was found unresponsive in a parking lot local [employer] store. Chest compression started by bystander. EMS was called. Patient was given Narcan with partial reversal of the altered mental status. Patient with given nonrebreathing mask. Patient was transported to the ED for evaluation. Patient was able to tell EMS/ER he was snorting Xanax. Patient however with severe altered mental status and unable to provide much more information. Patient had repeating episodes of vomiting at the scene and upon EMS arrival. Unable to obtain past history, medication, allergy. How Overdose Was Discovered: other Context: Accidental Overdose: uncertain what happened Treatments Prior to Arrival: oxygen, narcan and IV fluids. Patient was intubated and placed on mechanical ventilation following arrival in the ER and started on a propofol drip for sedation. He was accepted for admission by critical care medicine service. I evaluated the patient in the ER. At that time he was sedated with propofol, orally intubated on mechanical ventilation. Head CT ordered and is pending at this time. History was obtained by reviewing records and discussion with Dr. Chavez. 05/15: Arousable off sedation, tolerated CPAP trial. Extubated following CPAP trial 05-16 TRANSFERRED TO OUR SERVICE TODAY COMPLAINS OF PAIN WAS NOTED TO BE SNORTING MEDS PRIOR TO COMING TO THE HOSPITAL ALL THESE MEDS HE BOUGHT ON THE STREET -WERE NOT PRESCRIBED FOR HIM HAS BEEN CLEARED BY ALL AND CAN BE DISCHARGED TO HOME TODAY FOLLOW UP WITH HIS PCP DS: Diagnosis - Discharge Diagnosis (1) Drug abuse Status: Chronic (2) Respiratory failure Status: Acute (3) Drug overdose Status: Acute (4) Renal insufficiency Status: Chronic DS: Summary Hospital Course: 05/14: HPI Narrative: 58-year-old male was brought by EMS for altered mental status. Patient was found unresponsive in a parking lot local [employer] store. Chest compression started by bystander. EMS was called. Patient was given Narcan with partial reversal of the altered mental status. Patient with given nonrebreathing mask. Patient was transported to the ED for evaluation. Patient was able to tell EMS/ER he was snorting Xanax. Patient however with severe altered mental status and unable to provide much more information. Patient had repeating episodes of vomiting at the scene and upon EMS arrival. Unable to obtain past history, medication, allergy. How Overdose Was Discovered: other Context: Accidental Overdose: uncertain what happened Treatments Prior to Arrival: oxygen, narcan and IV fluids. Patient was intubated and placed on mechanical ventilation following arrival in the ER and started on a propofol drip for sedation. He was accepted for admission by critical care medicine service. I evaluated the patient in the ER. At that time he was sedated with propofol, orally intubated on mechanical ventilation. Head CT ordered and is pending at this time. History was obtained by reviewing records and discussion with Dr. Chavez. 05/15: Arousable off sedation, tolerated CPAP trial. Extubated following CPAP trial 05-16 TRANSFERRED TO OUR SERVICE TODAY COMPLAINS OF PAIN WAS NOTED TO BE SNORTING MEDS PRIOR TO COMING TO THE HOSPITAL ALL THESE MEDS HE BOUGHT ON THE STREET -WERE NOT PRESCRIBED FOR HIM HAS BEEN CLEARED BY ALL AND CAN BE DISCHARGED TO HOME TODAY FOLLOW UP WITH HIS PCP - Time Spent with Patient Total time spent providing and/or coordinating discharge services: Greater than 30 minutes Exam Vital signs: Vital Signs 05/15/18 16:00 05/15/18 16:59 05/15/18 17:05 Temperature 99.3 F 97.6 F Pulse Rate 82 82 76 Respiratory Rate 16 16 18 Blood Pressure 134/70 116/60 Pulse Oximetry 97 96 05/15/18 20:00 05/16/18 00:00 05/16/18 04:00 Temperature 97.9 F 97.9 F Pulse Rate 82 84 93 H Respiratory Rate 19 19 Blood Pressure 142/84 H 141/85 H Pulse Oximetry 96 92 L 05/16/18 08:00 05/16/18 08:13 05/16/18 12:00 Temperature 98.4 F 97.0 F L Pulse Rate 82 79 80 Respiratory Rate 20 14 20 Blood Pressure 139/84 127/81 Pulse Oximetry 93 L 98 92 L Intake & Output 05/15/18 05/16/18 05/16/18 18:59 06:59 18:59 Intake Total 2350 / 2350 Output Total 900 / 900 850 / 850 200 / 200 Balance 1450 / 1450 -850 / -850 -200 / -200 Weight 115.4 kg 116.1 kg Intake: IV 1150 / 1150 NS Inj 1,000 ML @ 75 mls/hr IV. 1150 / 1150 CONT .[id number] [facility] Rx#:[id number] Oral 1200 / 1200 Other 0 / 0 Output: Urine 850 / 850 200 / 200 Urine Amount (Catheter) 900 / 900 Indwelling Urethral Catheter 900 / 900 Other: # Bowel Movements 0 Narrative: GENERAL: Awake alert and oriented 3 talkative and cooperative appears to be in no acute distress SKIN: Warm and dry. HEAD: Atraumatic. Normocephalic. EYES: Pupils equal and round. No scleral icterus. No injection or drainage. EOMI ENT: No nasal bleeding or discharge. Mucous membranes pink and moist. Tongue is midline NECK: Trachea midline. No JVD. Supple CARDIOVASCULAR: Regular rate and rhythm. S1-S2 no S3 or S4 RESPIRATORY: No accessory muscle use. Clear to auscultation. Breath sounds equal bilaterally. GASTROINTESTINAL: Abdomen soft, non-tender, nondistended. Hepatic and splenic margins not palpable. MUSCULOSKELETAL: Extremities without clubbing, cyanosis, or edema. No obvious deformities. NEUROLOGICAL: Awake and alert. No obvious cranial nerve deficits. Motor grossly within normal limits. Five out of 5 muscle strength in the arms and legs. Normal speech. PSYCHIATRIC: Appropriate mood and affect; insight and judgment normal. Results Procedures completed during hospitalization: Intubation and extubation and mechanical ventilation Completed studies during hospitalization: Laboratory Results WBC 9.0 th/mm3 (4.0-11.0) 05/16/18 09:58 RBC 4.35 mil/mm3 (4.50-5.90) L 05/16/18 09:58 Hgb 13.4 gm/dL (13.0-17.0) D 05/16/18 09:58 Hct 40.3 % (39.0-51.0) 05/16/18 09:58 MCV 92.7 fL (80.0-100.0) 05/16/18 09:58 MCH 30.8 pg (27.0-34.0) 05/16/18 09:58 MCHC 33.2 % (32.0-36.0) 05/16/18 09:58 RDW 13.6 % (11.6-17.2) 05/16/18 09:58 Plt Count 168 th/mm3 (150-450) D 05/16/18 09:58 MPV 8.2 fL (7.0-11.0) 05/16/18 09:58 Neut % (Auto) 79.6 % (16.0-70.0) H 05/16/18 09:58 Lymph % (Auto) 9.8 % (9.0-44.0) 05/16/18 09:58 [place] % (Auto) 9.2 % (0.0-8.0) H 05/16/18 09:58 Eos % (Auto) 0.9 % (0.0-4.0) 05/16/18 09:58 Baso % (Auto) 0.5 % (0.0-2.0) 05/16/18 09:58 Neut # (Auto) 7.1 th/mm3 (1.8-7.7) 05/16/18 09:58 Lymph # (Auto) 0.9 th/mm3 (1.0-4.8) L 05/16/18 09:58 [place] # (Auto) 0.8 th/mm3 (0.0-0.9) 05/16/18 09:58 Eos # (Auto) 0.1 th/mm3 (0.0-0.4) 05/16/18 09:58 Baso # (Auto) 0.0 th/mm3 (0.0-0.2) 05/16/18 09:58 WBC Differential . 05/16/18 09:58 Differential Comment Auto diff final 05/16/18 09:58 PT 11.2 sec (9.8-11.6) 05/16/18 09:58 INR 1.1 Ratio 05/16/18 09:58 APTT 25.9 sec (24.3-30.1) 05/14/18 14:40 Puncture Site Right radial 05/14/18 22:37 Patient Temperature 98.6 05/14/18 22:37 O2 Saturation 93 % (90-100) 05/14/18 22:37 ABG pH 7.27 (7.380-7.420) L* 05/14/18 22:37 ABG pCO2 48 mmHg (38-42) H 05/14/18 22:37 ABG pO2 81 mmHg (61-120) 05/14/18 22:37 ABG HCO3 22 mmol/L (22-26) 05/14/18 22:37 ABG O2 Content 20.7 Vol % (12.0-20.0) H 05/14/18 22:37 ABG Base Excess -4.2 mmol/L (-2-2) L 05/14/18 22:37 ABG Methemoglobin 1.1 % (0-2) 05/14/18 22:37 Yefri Test Present 05/14/18 22:37 Hemoglobin 15.9 G/DL (12.0-16.0) 05/14/18 22:37 Carboxyhemoglobin 0.7 % (0-4) 05/14/18 22:37 O2 Delivery Device Ventilator 05/14/18 22:37 Liter Flow Cancelled 05/14/18 22:37 Vent Setting See comment 05/14/18 22:37 Inspired O2 60 % 05/14/18 22:37 Critical Value Yes 05/14/18 22:37 Sodium 134 meq/L (136-145) L 05/16/18 09:58 Potassium 3.5 meq/L (3.5-5.1) 05/16/18 09:58 Chloride 101 meq/L (98-107) 05/16/18 09:58 Carbon Dioxide 23.7 meq/L (21.0-32.0) 05/16/18 09:58 Anion Gap 9 meq/L (5-15) 05/16/18 09:58 BUN 17 mg/dL (7-18) 05/16/18 09:58 Creatinine 0.84 mg/dL (0.60-1.30) 05/16/18 09:58 Estimated GFR Greater than 89 mL/min (>89) 05/16/18 09:58 POC Glucose 93 mg/dl (68-110) 05/15/18 06:18 Random Glucose 120 mg/dL (74-106) H 05/16/18 09:58 Calcium 8.3 mg/dL (8.5-10.1) L 05/16/18 09:58 Phosphorus 1.8 mg/dL (2.5-4.9) L D 05/16/18 09:58 Magnesium 1.8 mg/dL (1.5-2.5) D 05/16/18 09:58 Total Bilirubin 0.5 mg/dL (0.2-1.0) 05/16/18 09:58 AST 15 U/L (15-37) 05/16/18 09:58 ALT 25 U/L (12-78) 05/16/18 09:58 Alkaline Phosphatase 67 U/L (45-117) 05/16/18 09:58 Total Creatine Kinase 138 U/L (39-308) 05/14/18 14:40 Troponin I Less than 0.02 ng/mL (0.02-0.05) L 05/15/18 05:00 Total Protein 7.0 g/dL (6.4-8.2) 05/16/18 09:58 Albumin 3.1 g/dL (3.4-5.0) L 05/16/18 09:58 TSH 1.570 uIU/mL (0.358-3.740) 05/16/18 09:58 Free T4 1.46 ng/dL (0.76-1.46) 05/16/18 09:58 Nasal Screen MRSA (PCR) Not detected (Negative) 05/14/18 21:30 Salicylates Less than 1.7 mg/dL (2.8-20.0) L 05/14/18 14:40 Urine Opiates Screen Pos (Neg) H 05/14/18 15:34 Acetaminophen Less than 2.0 mcg/mL (10.0-30.0) L 05/14/18 14:40 Ur Barbiturates Screen Neg (Neg) 05/14/18 15:34 Ur Amphetamines Screen Pos (Neg) H 05/14/18 15:34 U Benzodiazepines Scrn Pos (Neg) H 05/14/18 15:34 Urine Cocaine Screen Neg (Neg) 05/14/18 15:34 U Cannabinoids Screen Neg (Neg) 05/14/18 15:34 Serum Alcohol Less than 3 mg/dL (0-5) 05/14/18 14:40 Impressions Chest X-Ray 05/14/18 15:08 CONCLUSION: Interval intubation and line placement. The proximal port of the nasogastric tube is above the level of the gastroesophageal junction. The widening of the mediastinum and cephalization of pulmonary vasculature may be secondary to volume overload. Recommend upright PA lateral views when clinically able. If concern for vascular injury recommend further evaluation with contrast-enhanced CT. Head CT 05/14/18 17:16 CONCLUSION: 1. Negative noncontrast head CT. . Labs on day of discharge: Labs from last 24 hours 05/16/18 05/16/18 05/16/18 09:58 09:58 09:58 WBC RBC Hgb Hct MCV MCH MCHC RDW Plt Count MPV Neut % (Auto) Lymph % (Auto) [place] % (Auto) Eos % (Auto) Baso % (Auto) Neut # (Auto) Lymph # (Auto) [place] # (Auto) Eos # (Auto) Baso # (Auto) WBC Differential Differential Comment PT 11.2 INR 1.1 Sodium 134 L Potassium 3.5 Chloride 101 Carbon Dioxide 23.7 Anion Gap 9 BUN 17 Creatinine 0.84 Estimated GFR Greater than 89 Random Glucose 120 H Hemoglobin A1c Pending Calcium 8.3 L Phosphorus 1.8 L D Magnesium 1.8 D Total Bilirubin 0.5 AST 15 ALT 25 Alkaline Phosphatase 67 Total Protein 7.0 Albumin 3.1 L TSH 1.570 Free T4 1.46 05/16/18 09:58 WBC 9.0 RBC 4.35 L Hgb 13.4 D Hct 40.3 MCV 92.7 MCH 30.8 MCHC 33.2 RDW 13.6 Plt Count 168 D MPV 8.2 Neut % (Auto) 79.6 H Lymph % (Auto) 9.8 [place] % (Auto) 9.2 H Eos % (Auto) 0.9 Baso % (Auto) 0.5 Neut # (Auto) 7.1 Lymph # (Auto) 0.9 L [place] # (Auto) 0.8 Eos # (Auto) 0.1 Baso # (Auto) 0.0 WBC Differential . Differential Comment Auto diff final PT INR Sodium Potassium Chloride Carbon Dioxide Anion Gap BUN Creatinine Estimated GFR Random Glucose Hemoglobin A1c Calcium Phosphorus Magnesium Total Bilirubin AST ALT Alkaline Phosphatase Total Protein Albumin TSH Free T4 Preliminary micro results at discharge 05/15/18 08:50 Sputum Culture - Preliminary Sputum - Endotracheal gram negative rods - Impressions ITS Impressions Chest X-Ray 05/14/18 15:08 CONCLUSION: Interval intubation and line placement. The proximal port of the nasogastric tube is above the level of the gastroesophageal junction. The widening of the mediastinum and cephalization of pulmonary vasculature may be secondary to volume overload. Recommend upright PA lateral views when clinically able. If concern for vascular injury recommend further evaluation with contrast-enhanced CT. Head CT 05/14/18 17:16 CONCLUSION: 1. Negative noncontrast head CT. . Discharge Plan - Discharge Disposition Patient Disposition: 01 Discharge Home - Discharge Condition Condition: Good - Discharge Order Discharge Orders: Discharge Order (Routine); Ordered 05/16/18 Ordered By: Mikel Sanchez - Discharge Details Anticipated Discharge Date: 05/16/18 Discharge Comment: DC TO HOME TODAY - Physicians Team Primary Care Provider: UNKNOWN, Attending Provider: Mikel Sanchez
[2018-05-16 16:06] LABS: Hemoglobin A1c 5.6 % (4.3-6.0)
== END 2018-05-16 16:36 | disposition home or self-care (01) ==
LOC: NEPC 13:59 → NEDA 17:08 → EDBD 17:08 → NEDA 20:36 → N03 20:42 → N04 05-15 16:58
PROVIDERS: ADMIT Hospitalist; ATTEND Hospitalist